=== PATIENT | male | born 1970 | race Caucasian/White ===

== ENCOUNTER → 2017-10-01 14:08 | Outpatient (REF) | payer OTHER, SELFPAY ==
[2017-10-01 18:14] LABS: Basophils # 0.1 K/mm3 (0-0.2); Basophils % 0.9 % (0.1-2.0); Eosinophils # 0.3 K/mm3 (0.0-0.4); Eosinophils % 4.3 % (0.1-12.0); Hematocrit 46.9 % (42.0-52.0); Hemoglobin 14.7 g/dL (14.1-18.0); Lymphocytes # 2.1 K/mm3 (0.7-4.5); Lymphocytes % 32.1 K/mm3 (10-50); Mean Corpuscular HGB Conc 31.4 g/dL (31.8-35.4); Mean Corpuscular Hemoglobin 28.8 pg (27.0-31.2); Mean Corpuscular Volume 91.7 fl (80-94); Mean Platelet Volume 8.6 fl (7.4-10.4); Monocytes # 0.7 K/mm3 (0.1-1.0); Monocytes % 10.3 % (1.7-9.3); Neutrophils # 3.3 K/mm3 (1.8-7.8); Neutrophils % 52.4 % (37.0-80.0); Platelet Count 379 K/mm3 (142-424); Red Blood Count 5.11 M/mm3 (4.60-6.20); Red Cell Distribution Width 12.4 % (11.5-17.5); White Blood Count 6.4 K/mm3 (4.8-10.8)
[2017-10-01 18:53] LABS: Hemoglobin A1C 5.5 % (0.0-7.0)
[2017-10-01 19:44] LABS: Alanine Aminotransferase 46 U/L (12-78); Albumin Level 3.9 gm/dL (3.4-5.0); Alkaline Phosphatase 81 U/L (46-116); Aspartate Amino Transferase 28 U/L (15-37); Bilirubin,Total 0.4 mg/dL (0.2-1.0); Blood Urea Nitrogen 7 mg/dL (7-18); Carbon Dioxide 30 mmol/L (21.0-32.0); Chloride 102 mmol/L (98-107); Cholesterol 208 mg/dL (140-200); Creatinine,Serum 0.85 mg/dL (0.70-1.30); Estimated Glomerular Filt Rate 97 ml/min (>60); GFR (African American) 117 ML/MIN (>60); Globulin 3.9 gm/dl (1.3-3.2); Glucose 84 mg/dL (74-106); HDL Cholesterol 69 mg/dL (27-67); LDL Cholesterol 123 mg/dL (0-130); Sodium 138 mmol/L (136-145); Thyroid Stimulating Hormone 0.73 uIU/ml (0.358-3.740); Total Protein,Serum 7.8 gm/dL (6.4-8.2); Triglycerides 81 mg/dL (30-200); VLDL Cholesterol 16 mg/dL (0-40)
== END ==
LOC: LAB 14:08
PROVIDERS: Visit Provider Emergency Medicine
DX: I10 Essential (primary) hypertension (principal); R53.83 Other fatigue; Z79.899 Other long term (current) drug therapy
CPT/HCPCS: 80053; 80061; 83036; 84439; 84443; 85025

== ENCOUNTER → 2018-09-18 07:37 | Outpatient (CLI) | payer OTHER, SELFPAY ==
[2018-09-19 08:16] LABS: Basophils % 0.4 % (0.1-2.0); Eosinophils # 0.1 K/mm3 (0.0-0.4); Eosinophils % 1.6 % (0.1-12.0); Hematocrit 35.3 % (42.0-52.0); Hemoglobin 10.4 g/dL (14.1-18.0); Lymphocytes # 1.7 K/mm3 (0.7-4.5); Lymphocytes % 44.5 % (10-50); Mean Corpuscular HGB Conc 29.6 g/dL (31.8-35.4); Mean Corpuscular Hemoglobin 24.9 pg (27.0-31.2); Mean Corpuscular Volume 84.3 fl (80-94); Mean Platelet Volume 8.3 fl (7.4-10.4); Monocytes # 0.4 K/mm3 (0.1-1.0); Monocytes % 11.2 % (1.7-9.3); Neutrophils # 1.6 K/mm3 (1.8-7.8); Neutrophils % 42.2 % (37.0-80.0); Platelet Count 387 K/mm3 (142-424); Red Blood Count 4.19 M/mm3 (4.60-6.20); Red Cell Distribution Width 17.6 % (11.5-17.5); White Blood Count 4.1 K/mm3 (4.8-10.8)
[2018-09-19 08:56] LABS: Alanine Aminotransferase 40 U/L (12-78); Albumin Level 3.8 gm/dL (3.4-5.0); Alkaline Phosphatase 88 U/L (46-116); Anion Gap 14.7 mEq/L (5-15); Aspartate Amino Transferase 43 U/L (15-37); Bilirubin,Total 0.4 mg/dL (0.2-1.0); Blood Urea Nitrogen 12 mg/dL (7-18); Calcium 8.6 mg/dL (8.5-10.1); Carbon Dioxide 25 mmol/L (21.0-32.0); Chloride 100 mmol/L (98-107); Chol/HDL Ratio 1.9 (1-3.5); Cholesterol 160 mg/dL (140-200); Creatinine,Serum 0.87 mg/dL (0.70-1.30); Estimated Glomerular Filt Rate 94 ml/min (>60); Free T4 (Free Thyroxine) 1.08 ng/dl (0.76-1.46); GFR (African American) 113 ML/MIN (>60); Globulin 3.8 gm/dl (1.3-3.2); Glucose 87 mg/dL (74-106); HDL Cholesterol 83 mg/dL (27-67); LDL Cholesterol 62 mg/dL (0-130); Potassium 4.7 mmoL/L (3.5-5.1); Sodium 135 mmol/L (136-145); Thyroid Stimulating Hormone 0.57 uIU/ml (0.358-3.740); Total Protein,Serum 7.6 gm/dL (6.4-8.2); Triglycerides 77 mg/dL (30-200); VLDL Cholesterol 15 mg/dL (0-40)
[2018-09-20 13:07] LABS: Vitamin D 25 Hydroxy 37.1 ng/mL (30.0-100.0)
== END ==
PROVIDERS: Visit Provider Emergency Medicine
DX: I10 Essential (primary) hypertension (principal); Z79.899 Other long term (current) drug therapy
CPT/HCPCS: 80053; 80061; 82652; 84439; 84443; 85025

== ENCOUNTER → 2018-09-25 14:03 | Outpatient (CLI) | payer OTHER, SELFPAY ==
[2018-09-25 15:24] VITALS: PULSE 94; PULSE 97
== END ==
PROVIDERS: PCP Emergency Medicine; Visit Provider Emergency Medicine
DX: J44.9 Chronic obstructive pulmonary disease, unspecified (principal)
CPT/HCPCS: 94060; 94640

== ENCOUNTER → 2018-10-01 07:20 | Outpatient (CLI) | payer OTHER, SELFPAY ==
--- NOTE | 2018-10-01 07:24 | CA_ITS ---
PROCEDURE: 2-D M-mode and color Doppler study INDICATIONS FOR THE TEST: Chest pain+ COPD+ Heart Murmur+ Tobacco Smoking+ Palpitations Fatigue Syncope Edema Hypertension+Diabetes Mellitus Rheumatic Fever SOB+BARRON Obesity+Hyperlipidemia Family History HD Additional History alcoholic PATIENT INFORMATION HEIGHT: 66 WEIGHT: 232 GENDER: Male B/P: 130/74 2-D/M-MODE INTERPRETATION: 2-D MEASUREMENTS OBSERVED VALUES IN CMS Right Ventricular Dimension (RVDd) 2.6 Interventricular Septum (Thickness)(IVsd) 1.0 Left Ventricular Internal Dimensions(LVIDd) 5.0 Left Ventricular Posterior Wall (Thickness)(LVPWd) 1.0 Aortic Root 3.6 Aortic Cusp Separation 2.2 Left Atrial Dimensions (LAD) 4.0 2D 1. Left atrium is mildly enlarged, left ventricle is normal size, mild concentric left ventricular hypertrophy, visually estimated ejection fraction 55% with no regional wall motion abnormality 2. The right atrium and right ventricle are normal size and contractility. 3. The aortic valve is minimally thickened and fibrosed. 4. The mitral and tricuspid valve are normal. 5. The pulmonic valve is poorly visualized. 6. No significant pericardial effusion noted. DOPPLER INTERROGATION: Doppler interrogation of the aortic, mitral and tricuspid valvular presence of mild mitral and tricuspid regurgitation, tricuspid regurgitation jet velocity is inadequate for calculation of the right ventricular systolic pressure, grade 1 diastolic dysfunction seen with tissue Doppler evidence of raised left atrial pressure. CONCLUSION: 1. Mildly enlarged left atrium, normal left ventricular size, mild concentric left ventricular hypertrophy, visually estimated ejection fraction 55% with no regional wall motion abnormality, grade 1 diastolic dysfunction seen with tissue Doppler evidence of raised left atrial pressure. 2. Mild mitral and tricuspid regurgitation 3. No significant pericardial effusion.
== END ==
PROVIDERS: PCP Emergency Medicine; Visit Provider Emergency Medicine
DX: R01.1 Cardiac murmur, unspecified (principal)
CPT/HCPCS: 93306

== ENCOUNTER → 2018-10-11 17:48 | Outpatient (CLI) | payer OTHER, SELFPAY ==
[2018-10-11 18:24] LABS: Basophils % 0.3 % (0.1-2.0); Eosinophils # 0.1 K/mm3 (0.0-0.4); Eosinophils % 2.1 % (0.1-12.0); Hemoglobin 11.1 g/dL (14.1-18.0); Lymphocytes # 1.7 K/mm3 (0.7-4.5); Lymphocytes % 36.2 % (10-50); Mean Corpuscular HGB Conc 30.7 g/dL (31.8-35.4); Mean Corpuscular Hemoglobin 24.8 pg (27.0-31.2); Mean Corpuscular Volume 80.6 fl (80-94); Mean Platelet Volume 7.9 fl (7.4-10.4); Monocytes # 0.4 K/mm3 (0.1-1.0); Monocytes % 9.4 % (1.7-9.3); Neutrophils # 2.5 K/mm3 (1.8-7.8); Platelet Count 338 K/mm3 (142-424); Red Blood Count 4.46 M/mm3 (4.60-6.20); White Blood Count 4.7 K/mm3 (4.8-10.8)
[2018-10-13 06:46] LABS: Iron 22 ug/dL (38-169); UIBC 415 ug/dL (111-343)
[2018-10-14 14:24] LABS: Iron Saturation 5 % (15-55)
== END ==
PROVIDERS: Visit Provider Emergency Medicine
DX: D64.9 Anemia, unspecified (principal)
CPT/HCPCS: 83540; 83550; 85025

== ENCOUNTER 2019-04-18 10:18 | Observation (INO) ==
[2019-04-18 10:51] LABS: Basophils % 0.2 % (0.1-2.0); Eosinophils % 0.2 % (0.1-12.0); Hematocrit 27.3 % (42.0-52.0); Lymphocytes # 1.3 K/mm3 (0.7-4.5); Lymphocytes % 12.7 % (10-50); Mean Corpuscular HGB Conc 28.8 g/dL (31.8-35.4); Mean Corpuscular Volume 79.2 fl (80-94); Monocytes # 0.7 K/mm3 (0.1-1.0); Monocytes % 6.4 % (1.7-9.3); Neutrophils # 8.3 K/mm3 (1.8-7.8); Neutrophils % 80.5 % (37.0-80.0); Platelet Count 441 K/mm3 (142-424); Red Blood Count 3.45 M/mm3 (4.60-6.20); Red Cell Distribution Width 16.8 % (11.5-17.5); White Blood Count 10.3 K/mm3 (4.8-10.8)
[2019-04-18 11:57] LABS: Hemoglobin 7.9 g/dL (14.1-18.0)
[2019-04-18 13:13] LABS: Alanine Aminotransferase 58 U/L (12-78); Albumin/Globulin Ratio 0.7 (1.1-1.8); Alkaline Phosphatase 107 U/L (46-116); Anion Gap 15.1 mEq/L (5-15); Aspartate Amino Transferase 90 U/L (15-37); Bilirubin,Total 0.4 mg/dL (0.2-1.0); Blood Urea Nitrogen 5 mg/dL (7-18); Calcium 8.5 mg/dL (8.5-10.1); Carbon Dioxide 26 mmol/L (21.0-32.0); Chloride 93 mmol/L (98-107); Chol/HDL Ratio 2.6 (1-3.5); Cholesterol 113 mg/dL (140-200); Free Thyroxine Index 1.4 ug/dL (5.93-13.13); Globulin 4.2 gm/dl (1.3-3.2); Glucose 102 mg/dL (74-106); HDL Cholesterol 44 mg/dL (27-67); LDL Cholesterol 58 mg/dL (0-130); Sodium 130 mmol/L (136-145); Thyroid Stimulating Hormone 0.32 uIU/ml (0.358-3.740); Total Protein,Serum 7.2 gm/dL (6.4-8.2); Triglycerides 57 mg/dL (30-200); Triiodothryronine (T3) Uptake 31 % (31-39); VLDL Cholesterol 11 mg/dL (0-40)
[2019-04-18 17:16] LABS: Eosinophils % 0.1 % (0.1-12.0); Lymphocytes # 2.2 K/mm3 (0.7-4.5); Lymphocytes % 21.5 % (10-50); Mean Corpuscular HGB Conc 30.2 g/dL (31.8-35.4); Mean Platelet Volume 7.1 fl (7.4-10.4); Monocytes # 0.8 K/mm3 (0.1-1.0); Monocytes % 7.9 % (1.7-9.3); Neutrophils # 7.1 K/mm3 (1.8-7.8); Neutrophils % 70.4 % (37.0-80.0); Platelet Count 417 K/mm3 (142-424); Red Blood Count 3.25 M/mm3 (4.60-6.20); Red Cell Distribution Width 17.1 % (11.5-17.5); White Blood Count 10.1 K/mm3 (4.8-10.8)
[2019-04-18 17:27] LABS: Albumin Level 2.8 gm/dL (3.4-5.0); Albumin/Globulin Ratio 0.6 (1.1-1.8); Anion Gap 15.5 mEq/L (5-15); Bilirubin,Total 0.4 mg/dL (0.2-1.0); Globulin 4.5 gm/dl (1.3-3.2); Total Protein,Serum 7.3 gm/dL (6.4-8.2)
[2019-04-18 17:27] LABS: Hemoglobin 7.6 g/dL (14.1-18.0)
--- NOTE | 2019-04-18 20:19 | History & Physical Report ---
*Admission Date: 04/18/19 *Chief complaint: sob-anemia *History of present illness: this wm with known etoh misuse had swollen lower ext and dec h/h with symptomatic sob - pt was admitted for eval and transfusion [facility] History I have reviewed the patient's past medical history: Yes Medical History: Reports:: Anxiety, Chronic Obstructive Pulmonary Disease (COPD), Hypertension Denies:: Diabetes Mellitus Type 1, Diabetes Mellitus Type 2 *Have you ever received a pneumonia vaccine?: No *Have you received a flu vaccine this season?: No Other Medical History: Reports: Anemia, Arthritis Other Surgeries: Yes: No Previous Surgery Amputation: No Fractures: Yes - *Social History Smoking Status: Current every day smoker Tobacco Type: cigarettes # Packs/Day (cigarettes): 1 #Yrs smoked (if former smoker): 30 Alcohol Intake: current Alcohol Intake Frequency:: 3 or more drinks per day Substance Use Type: marijuana, crack/cocaine, opiates, painkillers Last Used Substance: just [employer] *Occupational Status:: unemployed Housing: house Household Members: family *Travel in the last 8 weeks: None - Psychiatric History Pschychiatric History:: Reports:: Anxiety Family Hx:: Heart Attack, Cancer, Coronary Artery Disease Review of Systems - Review of Systems Review of systems:: pertinent systems reviewed and negative unless documented below - Constitutional Denies fever(s) - Eyes Denies change in vision - ENT Denies sore throat - *Cardiovascular Reports shortness of breath, Denies chest pain at rest - *Respiratory Denies cough - *Gastrointestinal Reports nausea, Denies abdominal pain - *Genitourinary Denies blood in urine - *Musculoskeletal Denies joint pain - Integumentary/Breasts Denies rash - *Neurologic Denies seizure-like activity - Psychiatric Reports anxiety Meds Home Medications Medication Instructions Recorded Confirmed Type albuterol sulfate HFA 90 2 puff INHALATION Q4-6H PRN #18 g 03/10/19 04/18/19 Rx mcg/actuation aerosol inhaler Fluticasone/Vilanterol [Breo 1 inh INHALATION DAILY 04/18/19 04/18/19 History Ellipta] Omeprazole [Omeprazole 40mg 40 mg PO DAILY 04/18/19 04/18/19 History Capsule] buPROPion HCl [Wellbutrin 75mg 75 mg PO BID 04/18/19 04/18/19 History Tablet] Bisoprolol Fumarate [Bisoprolol 5 mg PO DAILY 04/19/19 04/19/19 History 5mg Tablet] Losartan/Hydrochlorothiazide 1 each PO DAILY 04/19/19 04/19/19 History [Losartan-Hctz 50-12.5 mg Tab] Allergies Allergy/AdvReac Type Severity Reaction Status Date / Time PCN (penicillin) Allergy Intermediate I-HIVES Uncoded 04/18/19 09:38 Penicillin Allergy Unknown Uncoded 04/18/19 09:38 Penicillin V Allergy Unknown Uncoded 04/18/19 09:38 Exam Vital signs and Labs for Last 24 Hours: Temp Pulse Resp BP Pulse Ox 98.7 F 95 H 18 135/82 99 04/18/19 20:04 04/18/19 20:04 04/18/19 20:04 04/18/19 20:04 04/18/19 20:04 Laboratory Results - last 24 hr 04/18/19 10:31: WBC 10.3, RBC 3.45 L, Hgb 7.9 L*, Hct 27.3 L, MCV 79.2 L, MCH 22.8 L, MCHC 28.8 L, RDW 16.8, Plt Count 441 H, MPV 9.0, Neut % (Auto) 80.5 H, Lymph % (Auto) 12.7, [place] % (Auto) 6.4, Eos % (Auto) 0.2, Baso % (Auto) 0.2, Neut # (Auto) 8.3 H, Lymph # (Auto) 1.3, [place] # (Auto) 0.7, Eos # (Auto) 0.0, Baso # (Auto) 0.0 04/18/19 10:31: Sodium 130 L, Potassium 4.1, Chloride 93 L, Carbon Dioxide 26, Anion Gap 15.1 H, BUN 5 L, Creatinine 0.81, Estimated GFR 102, Est GFR ( Amer) 123, Glucose 102, Calcium 8.5, Total Bilirubin 0.4, AST 90 H, ALT 58, Alkaline Phosphatase 107, Total Protein 7.2, Albumin 3.0 L, Globulin 4.2 H, Albumin/Globulin Ratio 0.7 L, Triglycerides 57, Cholesterol 113 L, LDL Cholesterol 58, VLDL Cholesterol 11, HDL Cholesterol 44, Cholesterol/HDL Ratio 2.6, TSH 0.32 L D, Free T4 Index 1.4 L, Thyroxine (T4) 4.4 L, T3 Uptake 31 04/18/19 10:31: B-Natriuretic Peptide 91 04/18/19 16:55: Blood Type O Positive, Antibody Screen Negative, Crossmatch (AHG) See Detail 04/18/19 16:55: WBC 10.1, RBC 3.25 L, Hgb 7.6 L*, Hct 25.0 L, MCV 77.0 L, MCH 23.3 L, MCHC 30.2 L, RDW 17.1, Plt Count 417, MPV 7.1 L, Neut % (Auto) 70.4, Lymph % (Auto) 21.5, [place] % (Auto) 7.9, Eos % (Auto) 0.1, Baso % (Auto) 0.0 L, Neut # (Auto) 7.1, Lymph # (Auto) 2.2, [place] # (Auto) 0.8, Eos # (Auto) 0.0, Baso # (Auto) 0.0 04/18/19 17:00: APTT 20.4 L 04/18/19 17:00: Sodium 127 L, Potassium 3.5, Chloride 92 L, Carbon Dioxide 23, Anion Gap 15.5 H, BUN 6 L, Creatinine 0.81, Estimated Creat Clear 167, Estimated GFR 102, Est GFR ( Amer) 123, Glucose 112 H, Calcium 8.0 L, Phosphorus 3.0, Magnesium 1.6, Total Bilirubin 0.4, AST 87 H, ALT 56, Alkaline Phosphatase 99, Total Protein 7.3, Albumin 2.8 L, Globulin 4.5 H, Albumin/Globulin Ratio 0.6 L 04/18/19 17:00: Blood Type Confirm O Positive 04/18/19 17:56: Stool Occult Blood Negative I & O for Last 24 hours: Intake & Output 04/16/19 04/17/19 04/18/19 04/19/19 11:59 11:59 11:59 11:59 Intake Total 240 / 240 Balance 240 / 240 Weight 234 lb - Constitutional no acute distress, obese - *Routine HEENT Exam Head: Present: normocephalic Eye: Present: EOMI, PERRL ENT: Absent: mucous membranes dry - *Routine Neck Exam Present: supple - *Routine Respiratory Exam Present: CTA bilaterally - *Routine Cardiovascular Exam Present: RRR, murmur - *Routine Abdominal Exam Present: soft - *Routine Extremities Exam Present: edema, pulses intact - *Routine Skin Exam Present: intact - *Routine Neurological Exam Present: alert, CN II-XII intact - Routine Psychiatric Exam Present: normal affect Assessment and Plan (1) Anemia Current visit: Yes Status: Acute Qualifiers: Anemia type: unspecified type Qualified Code(s): D64.9 - Anemia, unspecified Category: Medical Code(s): D64.9 - Anemia, unspecified (2) Anemia Current visit: Yes Status: Acute Category: Medical Code(s): D64.9 - Anemia, unspecified (3) Alcoholism Current visit: No Status: Acute Category: Medical Code(s): F10.20 - Alcohol dependence, uncomplicated (4) Hyponatremia Current visit: Yes Status: Acute Category: Medical Code(s): E87.1 - Hypo- osmolality and hyponatremia
[2019-04-19 03:57] LABS: Hematocrit 28.3 % (42.0-52.0); Hemoglobin 8.9 g/dL (14.1-18.0)
--- NOTE | 2019-04-19 09:07 | Pharmacy Consult Notes ---
[facility] Pharmacy VTE Monitoring - Patient Demographics Admission date: 04/18/19 Report Date: 04/19/19 Time: 09:07 Allergies/Adverse Reactions: Patient Allergies PCN (penicillin) Allergy (Intermediate, Uncoded 04/18/19 09:38) I-HIVES Penicillin Allergy (Unknown, Uncoded 04/18/19 09:38) Penicillin V Allergy (Unknown, Uncoded 04/18/19 09:38) Height: 1.65 m Weight: 107.133 kg - VTE Risk Labs: VTE Related Lab Results Hgb 8.9 g/dL (14.1-18.0) L D 04/19/19 03:45 Hct 28.3 % (42.0-52.0) L 04/19/19 03:45 Plt Count 417 K/mm3 (142-424) 04/18/19 16:55 APTT 20.4 seconds (23.6-34.0) L 04/18/19 17:00 BUN 6 mg/dL (7-18) L 04/18/19 17:00 Creatinine 0.81 mg/dL (0.70-1.30) 04/18/19 17:00 Estimated Creat Clear 167 mL/min (50-200) 04/18/19 17:00 - Prophylaxis VTE Prophylaxis Ordered?: Yes Types of VTE Prophylaxis: TEDS Knee High Location of Applied Device: Bilateral Lower Extremeties
--- NOTE | 2019-04-19 09:35 | Progress Note ---
Internal Medicine - PN: Subj *Date: 04/19/19 *Time: 09:33 Interval history: Today patient states he still weak. Exam Vital signs and Labs for Last 24 Hours: Temp Pulse Resp BP Pulse Ox 98.7 F 96 H 18 108/54 L 98 04/19/19 08:00 04/19/19 08:00 04/19/19 08:00 04/19/19 08:00 04/19/19 08:00 Laboratory Results - last 24 hr 04/18/19 10:31: WBC 10.3, RBC 3.45 L, Hgb 7.9 L*, Hct 27.3 L, MCV 79.2 L, MCH 22.8 L, MCHC 28.8 L, RDW 16.8, Plt Count 441 H, MPV 9.0, Neut % (Auto) 80.5 H, Lymph % (Auto) 12.7, [place] % (Auto) 6.4, Eos % (Auto) 0.2, Baso % (Auto) 0.2, Neut # (Auto) 8.3 H, Lymph # (Auto) 1.3, [place] # (Auto) 0.7, Eos # (Auto) 0.0, Baso # (Auto) 0.0 04/18/19 10:31: Sodium 130 L, Potassium 4.1, Chloride 93 L, Carbon Dioxide 26, Anion Gap 15.1 H, BUN 5 L, Creatinine 0.81, Estimated GFR 102, Est GFR ( Amer) 123, Glucose 102, Calcium 8.5, Total Bilirubin 0.4, AST 90 H, ALT 58, Alkaline Phosphatase 107, Total Protein 7.2, Albumin 3.0 L, Globulin 4.2 H, Albumin/Globulin Ratio 0.7 L, Triglycerides 57, Cholesterol 113 L, LDL Cholesterol 58, VLDL Cholesterol 11, HDL Cholesterol 44, Cholesterol/HDL Ratio 2.6, TSH 0.32 L D, Free T4 Index 1.4 L, Thyroxine (T4) 4.4 L, T3 Uptake 31 04/18/19 10:31: B-Natriuretic Peptide 91 04/18/19 16:55: Blood Type O Positive, Antibody Screen Negative, Crossmatch (AHG) See Detail 04/18/19 16:55: WBC 10.1, RBC 3.25 L, Hgb 7.6 L*, Hct 25.0 L, MCV 77.0 L, MCH 23.3 L, MCHC 30.2 L, RDW 17.1, Plt Count 417, MPV 7.1 L, Neut % (Auto) 70.4, Lymph % (Auto) 21.5, [place] % (Auto) 7.9, Eos % (Auto) 0.1, Baso % (Auto) 0.0 L, Neut # (Auto) 7.1, Lymph # (Auto) 2.2, [place] # (Auto) 0.8, Eos # (Auto) 0.0, Baso # (Auto) 0.0 04/18/19 17:00: APTT 20.4 L 04/18/19 17:00: Sodium 127 L, Potassium 3.5, Chloride 92 L, Carbon Dioxide 23, Anion Gap 15.5 H, BUN 6 L, Creatinine 0.81, Estimated Creat Clear 167, Estimated GFR 102, Est GFR ( Amer) 123, Glucose 112 H, Calcium 8.0 L, Phosphorus 3.0, Magnesium 1.6, Total Bilirubin 0.4, AST 87 H, ALT 56, Alkaline Phosphatase 99, Total Protein 7.3, Albumin 2.8 L, Globulin 4.5 H, Albumin/Globulin Ratio 0.6 L 04/18/19 17:00: Blood Type Confirm O Positive 04/18/19 17:56: Stool Occult Blood Negative 04/18/19 23:16: Stool Occult Blood Negative 04/19/19 03:45: Hgb 8.9 L D, Hct 28.3 L I & O for Last 24 hours: Intake & Output 04/16/19 04/17/19 04/18/19 04/19/19 11:59 11:59 11:59 11:59 Intake Total 1983 Balance 1983 Weight 236 lb 3 oz - Constitutional no acute distress - *Routine HEENT Exam Head: Present: normocephalic Eye: Present: PERRL ENT: Present: mucous membranes moist - *Routine Neck Exam Present: full ROM - *Routine Respiratory Exam Present: crackles - *Routine Cardiovascular Exam Present: RRR - *Routine Abdominal Exam Present: soft, normoactive bowel sounds. Absent: tenderness - *Routine Extremities Exam Present: full ROM. Absent: cyanosis, clubbing, edema - *Routine Skin Exam Present: warm. Absent: rash - *Routine Neurological Exam Present: alert, oriented X3 - Routine Psychiatric Exam Present: normal affect Assessment and Plan - Assessment and plan all Dx Assessment and Plan for all problems:: Rounded with Dr. Landeros all orders per Leti After 2 units of packed red cells hemoglobin only 9 will recheck CBC at 4:00 to ensure it is maintaining. We will give one-time dose of Lasix 20 mg for crackles.
[2019-04-19 17:01] LABS: Basophils % 0.1 % (0.1-2.0); Eosinophils % 0.2 % (0.1-12.0); Hematocrit 31.2 % (42.0-52.0); Hemoglobin 9.7 g/dL (14.1-18.0); Lymphocytes # 1.6 K/mm3 (0.7-4.5); Lymphocytes % 16.5 % (10-50); Mean Corpuscular HGB Conc 31.1 g/dL (31.8-35.4); Mean Corpuscular Volume 78.7 fl (80-94); Mean Platelet Volume 6.5 fl (7.4-10.4); Monocytes # 0.8 K/mm3 (0.1-1.0); Monocytes % 7.9 % (1.7-9.3); Neutrophils # 7.2 K/mm3 (1.8-7.8); Neutrophils % 75.3 % (37.0-80.0); Platelet Count 429 K/mm3 (142-424); Red Blood Count 3.96 M/mm3 (4.60-6.20); Red Cell Distribution Width 17.3 % (11.5-17.5); White Blood Count 9.6 K/mm3 (4.8-10.8)
[2019-04-20 08:28] VITALS: BP 140/88
--- NOTE | 2019-04-20 09:44 | Progress Note ---
Internal Medicine - PN: Subj *Date: 04/20/19 *Time: 09:42 Interval history: Today patient doing well. Patient still states that if he goes home he will go back to drinking he would like to be placed in a rehab. Exam Vital signs and Labs for Last 24 Hours: Temp Pulse Resp BP Pulse Ox 99.3 F 80 18 140/88 98 04/20/19 08:00 04/20/19 08:00 04/20/19 08:00 04/20/19 08:00 04/20/19 08:00 Laboratory Results - last 24 hr 04/19/19 13:40: Plasma/Serum Alcohol 0 04/19/19 16:18: WBC 9.6, RBC 3.96 L, Hgb 9.7 L, Hct 31.2 L, MCV 78.7 L, MCH 24.5 L, MCHC 31.1 L, RDW 17.3, Plt Count 429 H, MPV 6.5 L, Neut % (Auto) 75.3, Lymph % (Auto) 16.5, [place] % (Auto) 7.9, Eos % (Auto) 0.2, Baso % (Auto) 0.1, Neut # (Auto) 7.2, Lymph # (Auto) 1.6, [place] # (Auto) 0.8, Eos # (Auto) 0.0, Baso # (Auto) 0.0 I & O for Last 24 hours: Intake & Output 04/17/19 04/18/19 04/19/19 04/20/19 11:59 11:59 11:59 11:59 Intake Total 1983 1490 / 1490 Output Total 150 / 150 Balance 1983 1340 / 1340 Weight 236 lb 3 oz 236 lb 5 oz - Constitutional no acute distress - *Routine HEENT Exam Head: Present: normocephalic Eye: Present: EOMI, PERRL ENT: Present: mucous membranes moist - *Routine Neck Exam Present: supple. Absent: lymphadenopathy - *Routine Respiratory Exam Present: CTA bilaterally - *Routine Cardiovascular Exam Present: RRR - *Routine Abdominal Exam Present: soft, normoactive bowel sounds. Absent: tenderness - *Routine Extremities Exam Present: full ROM. Absent: cyanosis, clubbing, edema - *Routine Skin Exam Present: warm. Absent: rash - *Routine Neurological Exam Present: alert, oriented X3 - Routine Psychiatric Exam Present: normal affect Assessment and Plan (1) Anemia Current visit: Yes Status: Acute Qualifiers: Anemia type: unspecified type Qualified Code(s): D64.9 - Anemia, unspecified Category: Medical Code(s): D64.9 - Anemia, unspecified (2) Anemia Current visit: Yes Status: Acute Category: Medical Code(s): D64.9 - Anemia, unspecified (3) Alcoholism Current visit: No Status: Acute Category: Medical Code(s): F10.20 - Alcohol dependence, uncomplicated (4) Hyponatremia Current visit: Yes Status: Acute Category: Medical Code(s): E87.1 - Hypo- osmolality and hyponatremia - Assessment and plan all Dx Assessment and Plan for all problems:: Dr. Landeros to round later today all orders per Dr. Landeros Will refer to Kam Coyne waiting on discharge to see if he gets admitted.
--- NOTE | 2019-04-20 11:41 | Discharge Summary ---
General - General Admission date:: 04/18/19 Discharge date: 04/20/19 HPI HPI: this wm with known etoh misuse had swollen lower ext and dec h/h with symptomatic sob - pt was admitted for eval and transfusion Hospital Course Hospital Course: Anemia-2 units of packed red cells. Hemoglobin started at 7.6 yesterday was 9.7. Stool for occult blood x2-both negative IV fluids for low sodium-chronic Alcohol withdrawal protocol-patient states is doing well but not drinking. Plan was for the patient to be discharged and then go to [facility] for rehab but patient has chose to go home with daughter and then go to rehab later. Will discharge home with daughter follow-up in the office on Sunday he will need more work-up on his anemia and referred to Dr. Shook. Patient states he snores he will also need a sleep study Long discussion with patient about drinking alcohol and the risk of taking medicine to help with anxiety. Discussed healthy diet and lifestyle with patient. Objective Vital signs: Temp Pulse Resp BP Pulse Ox 99.3 F 80 18 140/88 98 04/20/19 08:00 04/20/19 08:00 04/20/19 08:00 04/20/19 08:00 04/20/19 08:00 no acute distress - *Routine HEENT Exam Head: Present: normocephalic Eye: Present: PERRL ENT: Present: mucous membranes moist - *Routine Respiratory Exam Present: CTA bilaterally - *Routine Cardiovascular Exam Present: RRR - *Routine Abdominal Exam Present: soft, normoactive bowel sounds - *Routine Extremities Exam Present: full ROM - *Routine Skin Exam Present: intact - *Routine Neurological Exam Present: alert, oriented X3, CN II-XII intact - Routine Psychiatric Exam Present: normal affect Results Labs on day of discharge: Labs from last 24 hours 04/19/19 04/19/19 16:18 13:40 WBC 9.6 RBC 3.96 L Hgb 9.7 L Hct 31.2 L MCV 78.7 L MCH 24.5 L MCHC 31.1 L RDW 17.3 Plt Count 429 H MPV 6.5 L Neut % (Auto) 75.3 Lymph % (Auto) 16.5 [place] % (Auto) 7.9 Eos % (Auto) 0.2 Baso % (Auto) 0.1 Neut # (Auto) 7.2 Lymph # (Auto) 1.6 [place] # (Auto) 0.8 Eos # (Auto) 0.0 Baso # (Auto) 0.0 Plasma/Serum Alcohol 0 - Additional Comments Discussed patient with Dr. Landeros all orders per Leti. DS: Diagnosis - Discharge Diagnosis (1) Anemia Status: Acute (2) Anemia Status: Acute (3) Alcoholism Status: Acute (4) Hyponatremia Status: Acute Discharge Plan - Patient Discharge Instructions ACTIVITY: Continue current activity DIET: continue same diet Patient Instructions: Anemia, DI for Blood Transfusion - Follow up Plan Follow up with: Aquilino Bloom APRN [Nurse Practitioner] - 05/20/19 Disposition: Home, Self-Halfway Medications: Home Medications Medication Instructions Recorded Confirmed Type albuterol sulfate HFA 90 2 puff INHALATION Q4-6H PRN #18 g 03/10/19 04/18/19 Rx mcg/actuation aerosol inhaler Fluticasone/Vilanterol [Breo 1 inh INHALATION DAILY 04/18/19 04/18/19 History Ellipta] Omeprazole [Omeprazole 40mg 40 mg PO DAILY 04/18/19 04/18/19 History Capsule] buPROPion HCl [Wellbutrin 75mg 75 mg PO BID 04/18/19 04/18/19 History Tablet] Bisoprolol Fumarate [Bisoprolol 5 mg PO DAILY 04/19/19 04/19/19 History 5mg Tablet] Losartan/Hydrochlorothiazide 1 each PO DAILY 04/19/19 04/19/19 History [Losartan-Hctz 50-12.5 mg Tab] clonazePAM [Clonazepam] 0.5 mg PO QID 15 Days #32 tab 04/20/19 Rx Prescriptions/Medication Reconciliation: New clonazePAM [Clonazepam] 0.5 mg PO QID 15 Days #32 tab Continued albuterol sulfate HFA 90 mcg/actuation aerosol inhaler 2 puff INHALATION Q4- 6H PRN #18 g PRN Reason: shortness of breath or wheezing Omeprazole [Omeprazole 40mg Capsule] 40 mg PO DAILY Fluticasone/Vilanterol [Breo Ellipta] 1 inh INHALATION DAILY buPROPion HCl [Wellbutrin 75mg Tablet] 75 mg PO BID Bisoprolol Fumarate [Bisoprolol 5mg Tablet] 5 mg PO DAILY Losartan/Hydrochlorothiazide [Losartan-Hctz 50-12.5 mg Tab] 1 each PO DAILY - Problem Reconciliation Problems Reviewed?: Yes
== END 2019-04-20 12:27 | disposition home or self-care (01) ==
LOC: LAB 10:18 → 2ND 10:18 → INTOOBSV 16:29 → OBSVTOIN 16:29 → 2ND 17:06
PROVIDERS: ADMIT Emergency Medicine; ATTEND Emergency Medicine
DX: Z79.899 Other long term (current) drug therapy; Z88.0 Allergy status to penicillin; F10.20 Alcohol dependence, uncomplicated; E66.01 Morbid (severe) obesity due to excess calories; I10 Essential (primary) hypertension; Z79.51 Long term (current) use of inhaled steroids; D64.9 Anemia, unspecified; E87.1 Hypo-osmolality and hyponatremia; J44.9 Chronic obstructive pulmonary disease, unspecified
CPT/HCPCS: 36415; 80053; 80061; 80306; 82272; 83735; 83880; 84100; 84436; 84443; 84479; 85014; 85018; 85025; 85730; 86850; 93308; G0328; G0378; J2405; P9016

== ENCOUNTER → 2019-04-22 18:06 | Outpatient (CLI) | payer OTHER, SELFPAY ==
[2019-04-22 18:09] LABS: MANUAL DIFFERENTIAL MANUAL DIFFERENTIAL (MANUAL DIFF)
[2019-04-22 18:31] LABS: Basophils % 0.3 % (0.1-2.0); Eosinophils # 0.1 K/mm3 (0.0-0.4); Eosinophils % 0.7 % (0.1-12.0); Hematocrit 32.6 % (42.0-52.0); Hemoglobin 9.6 g/dL (14.1-18.0); Lymphocytes # 1.6 K/mm3 (0.7-4.5); Lymphocytes % 19.3 % (10-50); Mean Corpuscular HGB Conc 29.4 g/dL (31.8-35.4); Mean Corpuscular Hemoglobin 23.6 pg (27.0-31.2); Mean Corpuscular Volume 80.5 fl (80-94); Monocytes # 0.8 K/mm3 (0.1-1.0); Monocytes % 9.5 % (1.7-9.3); Neutrophils # 5.7 K/mm3 (1.8-7.8); Neutrophils % 70.2 % (37.0-80.0); Platelet Count 496 K/mm3 (142-424); Red Blood Count 4.05 M/mm3 (4.60-6.20); Red Cell Distribution Width 17.1 % (11.5-17.5); Reticulocyte % (Auto) 2.9 % (0.9-3.2); White Blood Count 8.1 K/mm3 (4.8-10.8)
[2019-04-22 19:24] LABS: Hypochromasia 1+; Lymphocytes % 14 % (10-50); Microcytosis 1+; Monocytes % 8 % (2-9); Neutrophils % 78 % (42-76); Platelet Estimate Normal; RBC Morphology Normal; Total Cells Counted 100
[2019-04-22 22:19] LABS: Ferritin 55 ng/mL (8-388)
[2019-04-24 08:13] LABS: Iron 20 ug/dL (38-169); UIBC 332 ug/dL (111-343)
[2019-04-24 18:07] LABS: Peripheral Smear Review Scanned Result
[2019-04-25 11:41] LABS: Vitamin B12 506 pg/mL (232-1245)
[2019-04-25 11:42] LABS: Iron Saturation 6 % (15-55)
== END ==
PROVIDERS: Visit Provider Nurse Practitioner Family
DX: D64.9 Anemia, unspecified (principal)
CPT/HCPCS: 82607; 82728; 82746; 83540; 83550; 85007; 85014; 85018; 85044; 85048; 85049

== ENCOUNTER → 2019-05-15 11:52 | Outpatient (CLI) | payer OTHER, SELFPAY ==
--- NOTE | 2019-05-15 | CA_ITS ---
APPROVED REPORT Exam: Pharmacologic Technologist: Marika Wheat, Ht: 5 ft 5 in Wt: 245 lbs BSA: 2.16 m2 HR: 77 bpm BP: 152/92 mmHg Rhythm: NSR,ICRBBB,NS T WAVE ABNORMALITIES Indications: CP,SOA,PALPITATIONS,SYNCOPE Medical History Medical History: HTN Medications: Omeprazole,,,,, Losartan,,,,, WELLBUTRIN,,,,, LoraTADINE,,,,, BisOPROLOL,,,,, ClonAZapam,,,,, Allergies: PCN Cardiac Risk Factors: FHX of CAD, HTN Stress Test Details Test: LEXISCAN HR Resting HR: 77 bpm Max Heart Rate (APMHR): 171 bpm Max HR Achieved: 90 bpm Target HR (85% APMHR): 145 bpm % of APMHR: 52 Recovery HR: 83 bpm BP Resting BP: 152.0/92.0 mmHg Max BP: 152.0/92.0 mmHg Recovery BP: 150.0/94.0 mmHg ECG Resting ECG: NSR,ICRBBB,NS T WAVE ABNORMALITIES Clinical Exercise duration: 04:24 min Highest Stage Achieved: Stress ECG Conclusion DURING INFUSION OF LEXISCAN PATIENT HAD SOA,MALAISE AND NAUSEA. NO CHEST PAIN. NO ARRHYTHMIAS/ECTOPY. NO SIGNIFICANT ST-T CHANGES. UNREMARKABLE LEXISCAN STRESS. MYOVIEW IMAGES REPORTED SEPARATELY. Electronically signed by : George Machuca, 05/15/2019 15:35:52
--- NOTE | 2019-05-15 13:50 | HMH.ITSHM ---
Current Home Medications as stated by this patient Shay Israel or development representative. [] loratadine clonazepam bisoprolol omprazole losartan wellbutrin
== END ==
PROVIDERS: PCP Emergency Medicine; Visit Provider Internal Medicine Cardiovascular Disease
DX: R06.09 Other forms of dyspnea (principal); I10 Essential (primary) hypertension; R60.9 Edema, unspecified; J44.9 Chronic obstructive pulmonary disease, unspecified; E66.01 Morbid (severe) obesity due to excess calories; F10.20 Alcohol dependence, uncomplicated; F17.200 Nicotine dependence, unspecified, uncomplicated; F19.11 Other psychoactive substance abuse, in remission; F41.9 Anxiety disorder, unspecified
CPT/HCPCS: 78452; 93017; A9502; J2785

== ENCOUNTER 2019-12-02 18:13 | Emergency (ER) | payer OTHER, SELFPAY ==
[2019-12-02 18:13] VITALS: BP 133/40; PULSE 88; RESP 20; TEMP 36.6; O2SAT 93; BMI 39.4
[2019-12-02 18:40] VITALS: BMI 39.4
--- NOTE | 2019-12-02 18:41 | XR_ITS ---
PROCEDURE: XR CHEST 2V CLINICAL HISTORY: SOA Shortness of breath COMPARISON: No exams were available for comparison FINDINGS: There is cardiomegaly. There is a large hiatal hernia situated to the right of midline. The lungs are clear without infiltrates, suspicious nodules, or pleural effusions. There are old right-sided rib fractures. IMPRESSION: Cardiomegaly with hiatal hernia Dictated by: Aashish Chino MD 12/03/2019 17:51 Electronically signed by Aashish Chino MD in [place] 12/03/2019 17:51
--- NOTE | 2019-12-02 18:55 | HMH.EDGENADL ---
ED Disposition Clinical Impression: Weakness, Atypical chest pain Disposition: Home, Self-Care Condition on Discharge: Good Additional Instructions: Follow-up with Dr. Landeros in the office. Follow-up with cardiology, Dr. Otero and Dr. Machuca in the office, call for appointment. Additional instructions for CHEST PAIN: See your physician as soon as possible for further evaluation. Return immediately if worsening chest pain, vomiting, shortness of breath, fever, coughing of blood. Referrals: Manolo Landeros MD [Primary Care Provider] - German Otero MD [Staff Physician] - - Critical Care Critical Care Time: No Attestation: On 12/02/19, the high probability of a clinically significant, sudden or life threatening deterioration of the following system(s) required my full and direct attention, intervention and personal management. The time I documented below is in addition to time spent performing reported procedures but includes the following listed in this critical care notation. Medical Decision Making - Herb Inquiry Pt receiving controlled substance: No Vital Signs: 12/02/19 18:13 Temperature 97.9 F Temperature Source Oral Pulse Rate [Right] 88 Respiratory Rate 20 Blood Pressure [Right Arm] 133/40 L Blood Pressure Mean [Right Arm] 71 02 Sat by Pulse Oximetry 93 L - Lab Data Lab Results 12/02/19 18:40: WBC 9.6, RBC 3.60 L, Hgb 9.4 L, Hct 30.7 L, MCV 85.1, MCH 26.2 L, MCHC 30.8 L, RDW 14.4, Plt Count 385, MPV 7.9, Neut % (Auto) 71.2, Lymph % (Auto) 20.9, [place] % (Auto) 4.8, Eos % (Auto) 2.7, Baso % (Auto) 0.3, Neut # (Auto) 6.8, Lymph # (Auto) 2.0, [place] # (Auto) 0.5, Eos # (Auto) 0.3, Baso # (Auto) 0.0 12/02/19 18:40: Sodium 134 L, Potassium 4.4, Chloride 98, Carbon Dioxide 27, Anion Gap 13.4, BUN 13, Creatinine 1.00, Estimated Creat Clear 132, Estimated GFR 79, Est GFR ( Amer) 96, Glucose 103 H, Calcium 8.6, Total Bilirubin 0.3, AST 34, ALT 19, Alkaline Phosphatase 78, Total Protein 7.5, Albumin 4.0, Globulin 3.5 H, Albumin/Globulin Ratio 1.1 12/02/19 18:40: Influenza Type A Ag Negative, Influenza Type B Ag Negative 12/02/19 18:40: Group A Strep Rapid Negative 12/02/19 18:40: Troponin I 0.03 Result diagrams: 12/02/19 18:40 12/02/19 18:40 Orders (Tests/Meds): ORDERS Category Date Time Status XR chest 2V Stat Exams 12/02/19 18:41 Taken Troponin I Q3H Lab 12/02/19 22:15 Ordered Troponin I Q3H Lab 12/03/19 01:15 Ordered Strep Screen Confirmation Stat Micro 12/02/19 18:40 Received - Radiology Data #1 Image(s): Chest Image Reviewed: Yes I reviewed the patient's radiology image Large hiatal or diaphragmatic hernia. No old x-rays for comparison. No acute process. - ECG Data Tracing #1 EKG interpreted by Antonino Schneider MD: Rhythm: sinus Rate: 75 [place]: normal Ectopy: none Conduction: Incomplete right bundle branch block ST Segment Changes: none T Wave Changes: Inversion inferior and lateral Q Waves: none Prior electrocardiagrams reviewed. No change from prior tracings. - Physician Consults Physician Consulted: Leti (present, saw patient in ED) Time: 20:19 Reason -: Pt condition Comment/Response: Discharge home for outpatient follow-up, follow-up with cardiology also. Medical Decision Narrative: The patient had a stress Myoview 2019, the stress portion was negative, I cannot find a report for the Myoview. Patient states he did not have the Myoview portion, insurance would not pay for it. He has not followed up with cardiology since his stress test. 8:20 PM: The patient does not want to stay for second troponin. General Adult HPI - General Stated complaint: low on blood Time Seen by Provider: 12/02/19 18:55 - History of Present Illness HPI narrative: Patient states he has not felt well for about 4 to 5 days. The last time he felt like this he was low on blood so he thought he might be low on blood again. He says that h
[2019-12-02 19:08] LABS: Chloride 98 mmol/L (98-107); Strep Scrn Group A (Rapid) Negative (Negative)
[2019-12-02 19:09] LABS: Potassium 4.4 mmoL/L (3.5-5.1); Sodium 134 mmol/L (136-145)
[2019-12-02 19:10] LABS: Basophils % 0.3 % (0.1-2.0); Eosinophils # 0.3 K/mm3 (0.0-0.4); Eosinophils % 2.7 % (0.1-12.0); Hematocrit 30.7 % (42.0-52.0); Hemoglobin 9.4 g/dL (14.1-18.0); Lymphocytes % 20.9 % (10-50); Mean Corpuscular HGB Conc 30.8 g/dL (31.8-35.4); Mean Corpuscular Hemoglobin 26.2 pg (27.0-31.2); Mean Corpuscular Volume 85.1 fl (80-94); Mean Platelet Volume 7.9 fl (7.4-10.4); Monocytes # 0.5 K/mm3 (0.1-1.0); Monocytes % 4.8 % (1.7-9.3); Neutrophils # 6.8 K/mm3 (1.8-7.8); Neutrophils % 71.2 % (37.0-80.0); Platelet Count 385 K/mm3 (142-424); Red Cell Distribution Width 14.4 % (11.5-17.5); White Blood Count 9.6 K/mm3 (4.8-10.8)
[2019-12-02 19:11] LABS: Alanine Aminotransferase 19 U/L (12-78); Alkaline Phosphatase 78 U/L (38-126); Anion Gap 13.4 mEq/L (5-15); Aspartate Amino Transferase 34 U/L (17-59); Bilirubin,Total 0.3 mg/dl (0.2-1.3); Blood Urea Nitrogen 13 mg/dl (9-20); Carbon Dioxide 27 mmol/L (22.0-30.0); Creatinine Clearance Estimated 132 mL/min (50-200); Estimated Glomerular Filt Rate 79 ml/min (>60); GFR (African American) 96 ML/MIN (>60)
[2019-12-02 19:12] LABS: Albumin/Globulin Ratio 1.1 (1.1-1.8); Calcium 8.6 mg/dl (8.4-10.2); Globulin 3.5 g/dL (1.3-3.2); Glucose 103 mg/dl (74-100); Total Protein,Serum 7.5 g/dl (6.3-8.2)
--- NOTE | 2019-12-02 19:18 | ECG_ITS ---
APPROVED REPORT Exam: Resting ECG HR:75 bpm ECG Measurements Heart Rate 75 AXES HI 132 P 26 QRSd 102 QRS 30 QT 422 T -19 QTc 471 <Conclusion> Normal sinus rhythm Incomplete right bundle branch block T wave abnormality, consider inferior ischemia Prolonged QT Abnormal ECG Electronically signed by : Chandler Oconnell, 12/05/2019 08:07:58
[2019-12-02 19:54] LABS: Troponin I 0.03 ng/ml (0.00-0.034)
[2019-12-02 21:00] VITALS: BP 137/81; PULSE 78; RESP 19; TEMP 36.7; O2SAT 98
== END 2019-12-02 21:02 | disposition home or self-care (01) ==
PROVIDERS: Emergency Provider Emergency Medicine; PCP Emergency Medicine
DX: R07.89 Other chest pain (principal); R53.1 Weakness; J44.9 Chronic obstructive pulmonary disease, unspecified; I10 Essential (primary) hypertension; F41.9 Anxiety disorder, unspecified; F17.210 Nicotine dependence, cigarettes, uncomplicated; F11.11 Opioid abuse, in remission
CPT/HCPCS: 71046; 80053; 84484; 85025; 87275; 87276; 87430; 93005; 96365; 99283; 99284

== ENCOUNTER → 2020-03-15 17:06 | Outpatient (CLI) | payer OTHER, SELFPAY ==
[2020-03-15 18:18] LABS: Anion Gap 15.6 mEq/L (5-15); Blood Urea Nitrogen 5 mg/dl (9-20); Calcium 8.5 mg/dl (8.4-10.2); Carbon Dioxide 26 mmol/L (22.0-30.0); Chloride 98 mmol/L (98-107); Estimated Glomerular Filt Rate 103 ml/min (>60); GFR (African American) 124 ML/MIN (>60); Glucose 150 mg/dl (74-100); Potassium 3.6 mmoL/L (3.5-5.1); Sodium 136 mmol/L (136-145)
== END ==
PROVIDERS: Visit Provider Emergency Medicine
DX: R60.9 Edema, unspecified (principal)
CPT/HCPCS: 80048

== ENCOUNTER → 2020-03-18 17:05 | Outpatient (CLI) | payer OTHER, SELFPAY ==
[2020-03-18 19:34] LABS: Hemoglobin A1C 5.8 % (4.0-6.0)
== END ==
PROVIDERS: Visit Provider Emergency Medicine
DX: R73.09 Other abnormal glucose (principal)
CPT/HCPCS: 83036

== ENCOUNTER 2020-04-01 19:58 | Inpatient (IN) | payer OTHER, SELFPAY ==
[2020-04-01] VITALS (8 sets, daily range): BP systolic 89–112; BP diastolic 47–68; PULSE 69–77; RESP 16–18; TEMP 36.7; O2SAT 96–100; BMI 44.2
--- NOTE | 2020-04-01 19:37 | ECG_ITS ---
APPROVED REPORT Exam: Resting ECG HR:87 bpm ECG Measurements Heart Rate 87 AXES [place] 136 P 32 QRSd 104 QRS 27 QT 394 T 12 QTc 474 <Conclusion> Normal sinus rhythm Nonspecific ST abnormality Abnormal ECG Electronically signed by : Chandler Oconnell, 04/02/2020 07:51:44
--- NOTE | 2020-04-01 20:10 | XR_ITS ---
PROCEDURE: XR CHEST 2V CLINICAL HISTORY: chest pain Smoker COMPARISON: CR XR CHEST 2V from 12/02/2019 FINDINGS: The cardiomediastinal silhouette and pulmonary vascularity are within normal limits. There is a moderate-sized hiatal hernia. No lobar consolidation. There is kyphoscoliosis of the thoracic and lumbar spine with wedging lower dorsal vertebral bodies similar to the previous exam. IMPRESSION: Kyphoscoliosis with hiatal Dictated b Aashish Chino MD 04/02/2020 05:42 Aashish Chino MD in [place] 04/02/2020 05:42
[2020-04-01 20:20] LABS: Basophils # 0.1 K/mm3 (0-0.2); Basophils % 0.6 % (0.1-2.0); Eosinophils # 0.1 K/mm3 (0.0-0.4); Eosinophils % 0.9 % (0.1-12.0); Hematocrit 24.2 % (42.0-52.0); Lymphocytes # 1.8 K/mm3 (0.7-4.5); Lymphocytes % 18.6 % (10-50); Mean Corpuscular HGB Conc 30.2 g/dL (31.8-35.4); Mean Corpuscular Hemoglobin 23.2 pg (27.0-31.2); Mean Corpuscular Volume 76.9 fl (80-94); Mean Platelet Volume 6.8 fl (7.4-10.4); Monocytes # 0.8 K/mm3 (0.1-1.0); Monocytes % 8.6 % (1.7-9.3); Neutrophils # 6.8 K/mm3 (1.8-7.8); Neutrophils % 71.5 % (37.0-80.0); Platelet Count 438 K/mm3 (142-424); Potassium 3.5 mmoL/L (3.5-5.1); Red Blood Count 3.15 M/mm3 (4.60-6.20); Red Cell Distribution Width 15.8 % (11.5-17.5); Sodium 121 mmol/L (136-145); White Blood Count 9.5 K/mm3 (4.8-10.8)
[2020-04-01 20:21] LABS: Hemoglobin 7.3 g/dL (14.1-18.0)
--- NOTE | 2020-04-01 20:21 | PC.NURSE ---
critical hgb reported to Dr. Landeros
[2020-04-01 20:23] LABS: Blood Urea Nitrogen 17 mg/dl (9-20); Creatinine Clearance Estimated 60 mL/min (50-200); Estimated Glomerular Filt Rate 64 ml/min (>60); Ethyl Alcohol 54 mg/dl (0-10); GFR (African American) 78 ML/MIN (>60)
[2020-04-01 20:24] LABS: Anion Gap 14.5 mEq/L (5-15); Calcium 8.7 mg/dl (8.4-10.2); Carbon Dioxide 30 mmol/L (22.0-30.0); Glucose 104 mg/dl (74-100)
[2020-04-01 20:26] LABS: Chloride 80 mmol/L (98-107)
[2020-04-01 20:53] LABS: Troponin I < 0.01 ng/ml (0.00-0.034)
--- NOTE | 2020-04-01 20:56 | HMH.EDCP ---
ED Disposition Clinical Impression: Thrombocytosis, Hyponatremia, Alcoholism, Bilateral lower extremity edema Chest pain Qualifiers: Chest pain type: precordial pain Qualified Code(s): R07.2 - Precordial pain COPD (chronic obstructive pulmonary disease) Qualifiers: COPD type: unspecified COPD Qualified Code(s): J44.9 - Chronic obstructive pulmonary disease, unspecified Obesity Qualifiers: Obesity type: due to excess calories Obesity classification: adult class 3 (BMI >= 40) Serious obesity comorbidity presence: with serious comorbidity Body mass index: BMI 40.0-44.9 Qualified Code(s): E66.01 - Morbid (severe) obesity due to excess calories; Z68.41 - Body mass index (BMI) 40.0-44.9, adult Hypertension Qualifiers: Hypertension type: essential hypertension Qualified Code(s): I10 - Essential (primary) hypertension Disposition: Admitted As Inpatient Condition on Discharge: Fair Referrals: Manolo Landeros MD [Primary Care Provider] - - Critical Care Critical Care Time: No Attestation: On 04/01/20, the high probability of a clinically significant, sudden or life threatening deterioration of the following system(s) required my full and direct attention, intervention and personal management. The time I documented below is in addition to time spent performing reported procedures but includes the following listed in this critical care notation. Medical Decision Making - Medical Records Medical records reviewed: Yes: I reviewed the patient's medical records. - Herb Inquiry Pt receiving controlled substance: No Vital Signs: 04/01/20 19:58 Temperature 98.1 F Temperature Source Oral Pulse Rate [Left Radial] 77 Respiratory Rate 16 Blood Pressure [Right Arm] 89/48 L Blood Pressure Mean [Right Arm] 61 Blood Pressure Source [Right Arm] Automatic Cuff Blood Pressure Position [Right Arm] Sitting 02 Sat by Pulse Oximetry 96 Oxygen Delivery Method Room Air - Lab Data Lab results reviewed: Yes: I reviewed the patient's lab results. Lab Results 04/01/20 20:00: WBC 9.5, RBC 3.15 L, Hgb 7.3 L*, Hct 24.2 L, MCV 76.9 L, MCH 23.2 L, MCHC 30.2 L, RDW 15.8, Plt Count 438 H, MPV 6.8 L, Neut % (Auto) 71.5, Lymph % (Auto) 18.6, [place] % (Auto) 8.6, Eos % (Auto) 0.9, Baso % (Auto) 0.6, Neut # (Auto) 6.8, Lymph # (Auto) 1.8, [place] # (Auto) 0.8, Eos # (Auto) 0.1, Baso # (Auto) 0.1 04/01/20 20:00: Sodium 121 L, Potassium 3.5, Chloride 80 L, Carbon Dioxide 30, Anion Gap 14.5, BUN 17, Creatinine 1.20, Estimated Creat Clear 60, Estimated GFR 64, Est GFR ( Amer) 78, Glucose 104 H, Calcium 8.7, Troponin I < 0.01 04/01/20 20:00: Plasma/Serum Alcohol 54 H Result diagrams: 04/01/20 20:00 04/01/20 20:00 Orders (Tests/Meds): ED MEDICATIONS Generic Name Dose Route Start Last Admin Trade Name Freq PRN Reason Stop Dose Admin Sodium Chloride 1,000 mls @ 999 mls/hr 04/01/20 20:15 04/01/20 20:19 Sod Chlor 0.9% 1000ml Bag IV 04/01/20 21:15 999 mls/hr .Q1H1M FELICITA Administration Discontinued Medications Generic Name Dose Route Start Last Admin Trade Name Freq PRN Reason Stop Dose Admin Aspirin 324 mg 04/01/20 20:12 04/01/20 20:18 Aspirin 81mg Chewable Tablet PO 04/01/20 20:13 324 mg ONCE ONE Administration ORDERS Category Date Time Status XR chest 2V Stat Exams 04/01/20 20:10 Taken Drug Screen,Urine Stat Lab 04/01/20 21:08 Received Troponin I Q3H Lab 04/01/20 23:15 Ordered Troponin I Q3H Lab 04/02/20 02:15 Ordered Urinalysis and Microscopic Stat Lab 04/01/20 21:08 Received - Radiology Data #1 Image(s): Chest Image Reviewed: Yes I reviewed the patient's radiology image Preliminary Findings: Abnormal (hiatal hernia ) - ECG Data Tracing #1 Normal Sinus Rhythm: Yes Ischemic changes: non-specific ST-T wave changes Chest Pain HPI - General Chief Complaint: Chest Pain Stated Complaint: chest pain Time Seen by Provider: 04/01/20 20:05 Mode of Arrival: Ambulatory So
[2020-04-01 21:15] LABS: Microscopic, Urine URINE MICROSCOPIC (MICROSCOPIC)
[2020-04-01 21:16] LABS: Appearance,Urine CLEAR (Clear); Blood, Urine Negative (Negative); Glucose,Urine (UA) Negative (Negative); Ketones,Urine 1+ (Negative); Leukocyte Esterase,Urine Negative (Negative); Nitrate,Urine Negative (Negative); Protein,Urine Negative (Negative); Specific Gravity, Urine 1.025 (1.005-1.030); Urobilinogen,Urine 0.2 EU/dl (0.2)
[2020-04-01 21:29] LABS: Barbiturates Screen,Urine Negative ng/ml (<200); Benzodiazepines Screen,Urine Positive ng/ml (<200)
[2020-04-01 21:30] LABS: Amphetamine/Metha Screen,Urine Negative ng/ml (<1000); Bilirubin,Urine Negative (Negative); Cannabinoid Screen,Urine Negative ng/ml (<50); Color,Urine Amber (Yellow)
[2020-04-01 21:31] LABS: Cocaine Screen,Urine Negative ng/ml (<300)
[2020-04-01 21:32] LABS: Methadone Screen,Urine Negative ng/ml (<300); Opiate Screen,Urine Negative ng/ml (<300)
[2020-04-01 21:33] LABS: Phencyclidine Screen,Urine Negative ng/ml (<25)
[2020-04-01 21:44] LABS: Bacteria,Urine Trace /lpf; Squamous Epithelial Cell,Urine Occasional #/hpf (0-5)
[2020-04-01 21:47] LABS: Adenovirus,PCR Not Detected (NotDetected); Bordetella Pertussis Not Detected (NotDetected); Chlamydophila Pneumoniae, PCR Not Detected (NotDetected); Coronavirus 19, PCR Not Detected (NotDetected); Coronavirus 229E Not Detected (NotDetected); Coronavirus NL63 Not Detected (NotDetected); Coronavirus OC43 Not Detected (NotDetected); Coronovirus HKU1,PCR Not Detected (NotDetected); Human Metapneumovirus Not Detected (NotDetected); Influenza A, PCR Not Detected (NotDetected); Influenza AH1, 2009 Not Detected (NotDetected); Influenza AH1, PCR Not Detected (NotDetected); Influenza AH3,PCR Not Detected (NotDetected); Influenza B, PCR Not Detected (NotDetected); Mycoplasma Pneumoniae, PCR Not Detected (NotDetected); Parainfluenza 1, PCR Not Detected (NotDetected); Parainfluenza 2, PCR Not Detected (NotDetected); Parainfluenza 3, PCR Not Detected (NotDetected); Parainfluenza 4, PCR Not Detected (NotDetected); Respiratory Syncytial Virus Not Detected (NotDetected); Rhinovirus/Enterovirus Not Detected (NotDetected)
[2020-04-01 21:54] LABS: Alanine Aminotransferase 61 U/L (12-78); Albumin Level 3.7 g/dl (3.5-5.0); Alkaline Phosphatase 91 U/L (38-126); Aspartate Amino Transferase 167 U/L (17-59); Bilirubin,Direct 0.3 mg/dl (0.0-0.4); Bilirubin,Indirect 0.3 mg/dL (0.0-0.9); Bilirubin,Total 0.6 mg/dl (0.2-1.3); Bilirubin,Unconjugated 0.3 mg/dL (0.0-1.1); Chol/HDL Ratio 2.3 (1-3.5); Cholesterol 118 mg/dl (140-200); HDL Cholesterol 52 mg/dl (40-60); Total Protein,Serum 6.9 g/dl (6.3-8.2); Triglycerides 86 mg/dl (30-150); VLDL Cholesterol 17 mg/dL (0-40)
[2020-04-01 21:56] LABS: INR 0.99 (0.9-1.1); Prothrombin Time 10.2 seconds (9.4-11.8)
[2020-04-01 22:05] LABS: Direct LDL Cholesterol 62.05 mg/dL (100-129); NT Pro Brain Natriuretic Pep. 1830 pg/mL (0-125)
[2020-04-01 22:13] LABS: T4 (Thyroxine) 5.4 ug/dl (5.53-11.0)
[2020-04-01 22:26] LABS: Thyroid Stimulating Hormone 1.35 uIU/mL (0.465-4.68)
--- NOTE | 2020-04-01 23:47 | PC.NURSE ---
LAB CALLED TO LET THIS NURSE KNOW THE PTS BLOOD IS READY FOR INFUSION. THIS NURSE CALLED SHERITA TO COME TRANSFUSE BLOOD. SHERITA STATED IT WAS OKAY TO WAIT TILL PT WAS ADMITTED TO THE FLOOR FOR THE BLOOD TO BE TRANSFUSED. SHERITA SPOKE WITH CEZAR IN LAB ABOUT CONFIRMING IT WAS OKAY TO WAIT TO TRANSFUSE.
[2020-04-02] VITALS (41 sets, daily range): BP systolic 93–136; BP diastolic 41–86; PULSE 68–82; RESP 16–20; TEMP 36.4–37.1; O2SAT 95–100; BMI 45.4; BMI 45.1
--- NOTE | 2020-04-02 | IR_ITS ---
APPROVED REPORT Patient Location: Inpatient [facility] Professor: MARISA Mosher RT (R) PROCEDURES Left heart catheterization Left ventriculogram Selective coronary angiogram INDICATION Unstable angina Informed consent was obtained prior to the procedure. COMPLICATIONS None Estimated Blood Loss: less than 10ml TECHNIQUE One percent lidocaine used to anesthetize the right anterior aspect of the wrist. The right radial artery was accessed via the Seldinger technique. A 6 Slovak sheath was placed in the right radial artery. 2.5 mg of verapamil, 800 mcg of nitroglycerin, 1mg Lidocaine and 5000 U Heparin were given through the arterial sheath. The trap catheter was also used to perform left heart catheterization, left ventriculogram and selective coronary angiogram. At the end of the procedure the sheath was removed good hemostasis was achieved using Traclet band, patient was transferred to the postop holding area in stable condition. ANGIOGRAPHIC RESULTS The left main artery Normal The left anterior descending artery Normal The circumflex artery Normal The right coronary artery Dominant normal The CROOKS ventriculogram reveals Normal 65% The left ventricular end-diastolic pressure 15 mmHg IMPRESSION Normal coronary arteries Normal ejection fraction Mildly elevated LVEDP PLAN 1. Evaluation of noncardiac chest pain Electronically signed by : German Otero, 04/02/2020 12:08:25
[2020-04-02 00:03] LABS: Troponin I < 0.01 ng/ml (0.00-0.034)
--- NOTE | 2020-04-02 00:53 | PC.NURSE ---
called lab to check on COVID test
--- NOTE | 2020-04-02 01:05 | PC.NURSE ---
report called to IBIS Ernst
--- NOTE | 2020-04-02 01:24 | PC.NURSE ---
patient up to floor via wheelchair,RN.
[2020-04-02 02:23] LABS: Troponin I < 0.01 ng/ml (0.00-0.034)
--- NOTE | 2020-04-02 04:07 | PC.NURSE ---
Late entry: @ 8179 Blood consent obtained from pt makayla jhaveri RN and Adriana Ruiz RN. Pt is A&Ox4, has received blood products in the past without reaction. Pt teaching given for s/s of reaction. Pt has chronic back pain, rates 8/10 on TIP PRINTER, and denies any SOA at this time.
--- NOTE | 2020-04-02 04:14 | PC.NURSE ---
No changes from previous assessment. Pt has continued to deny and SOA, lungs CTA, and room air sat >97%. Pt has ambulated in room a few times and tolerated well independently. Pt has refused ROCK hose. Pt has an echo and cardiac consult for the am and was educated, partial basin bath, and surgically clipped for the possibility of a cardiac cath. Pt on tele with NSR noted. Pt denies any chest pain. Pt has rested in short intervals d/t receiving PRBC.
--- NOTE | 2020-04-02 06:20 | PC.NURSE ---
All care and charting completed by Lavelle Valdes was completed under my direct supervision.
--- NOTE | 2020-04-02 08:00 | CA_ITS ---
APPROVED REPORT EXAM: Comprehensive 2D, Doppler, and color-flow Echocardiogram Invoice Clerk: Radha Ríos RVT Ht: 5 ft 3 in Wt: 250lbs BSA: 2.13 BP: 89/48 mmHg Indications: cp,smoker,copd,htn,edema,alcoholism,fatigue 2D Dimensions LVOT 2.80 cm (M/F) 1.5-2.5 M-Mode Dimensions RVDd 3.48 cm (0.9-2.6) LVDd 6.16 cm (3.5-5.7) LVDs 3.93 cm (3.5-5.7) IVSd 1.07 cm (0.6-1.1) PWd 1.16 cm (0.6-1.1) EF (Teich) 64.90% FS 36.20% EDV (Teich) 191.10 mL ESV (Teich) 67.10 mL LV Diastology E/A Ratio 1.29 Mitral Valve MV A Velocity 59.00 (40-130 cm/s) Left Ventricle Left atrium is mildly enlarged, left ventricle is normal size, mild concentric left ventricular hypertrophy, visually estimated ejection fraction 55% with no regional wall motion abnormality, grade 1 diastolic dysfunction seen without tissue Doppler evidence of raise left atrial pressure. Right Ventricle Right atrium and right ventricle are mildly enlarged with normal contractility. Aortic Valve Aortic valve is minimally thickened and fibrosed, there is no aortic stenosis or aortic insufficiency. Mitral Valve Mitral valve is grossly normal, there is mild mitral regurgitation. Tricuspid Valve Tricuspid valve is grossly normal, there is mild tricuspid regurgitation, tricuspid regurgitation jet velocity is inadequate for calculation of the right ventricular systolic pressure. Pulmonic Valve Pulmonic valve is poorly visualized. Great Vessels Aortic root is normal size. Pericardium No significant pericardial effusion noted. Conclusion 1. Mild biatrial enlargement, normal left ventricular size, mild concentric left ventricular hypertrophy, visually estimated ejection fraction 55% with no regional wall motion abnormality, grade 1 diastolic dysfunction seen without tissue Doppler evidence of raise left atrial pressure. 2. Mildly enlarged right ventricle with normal contractility. 3. Mild mitral and tricuspid regurgitation. 4. No significant pericardial effusion noted. Electronically signed by : George Machuca, 04/02/2020 13:19:47
--- NOTE | 2020-04-02 08:29 | HMH.PHAVTE ---
[facility] Pharmacy VTE Monitoring - Patient Demographics Admission date: 04/02/20 Report Date: 04/02/20 Time: 08:29 Allergies/Adverse Reactions: Patient Allergies Penicillins Allergy (Verified 04/01/20 15:55) Hives Height: 1.63 m Weight: 120.202 kg Patient Problems: Current Active Problems Hyponatremia (Acute) Thrombocytosis (Acute) Bilateral lower extremity edema (Acute) Alcoholism (Chronic) Chest pain (Acute) Obesity (Chronic) COPD (chronic obstructive pulmonary disease) (Chronic) Hypertension (Chronic) - VTE Risk Labs: VTE Related Lab Results Hgb 7.3 g/dL (14.1-18.0) L* 04/01/20 20:00 Hct 24.2 % (42.0-52.0) L 04/01/20 20:00 Plt Count 438 K/mm3 (142-424) H 04/01/20 20:00 PT 10.2 seconds (9.4-11.8) 04/01/20 20:00 INR 0.99 (0.9-1.1) 04/01/20 20:00 APTT 22.0 seconds (23.6-34.0) L 04/01/20 20:00 BUN 17 mg/dl (9-20) 04/01/20 20:00 Creatinine 1.20 mg/dl (0.66-1.25) 04/01/20 20:00 Estimated Creat Clear 60 mL/min (50-200) 04/01/20 20:00 Was VTE Risk Assessment Performed: Yes VTE Score: 6 VTE Risk Level: Moderate Risk Clinical Trial Participant: No - Prophylaxis VTE Prophylaxis Ordered?: Yes Types of VTE Prophylaxis: TEDS Knee High
[2020-04-02 09:02] LABS: Eosinophils # 0.1 K/mm3 (0.0-0.4); Mean Corpuscular Hemoglobin 24.9 pg (27.0-31.2); Red Blood Count 3.66 M/mm3 (4.60-6.20)
[2020-04-02 09:06] LABS: Basophils % 0.4 % (0.1-2.0); Eosinophils % 1.2 % (0.1-12.0); Hematocrit 29.2 % (42.0-52.0); Lymphocytes # 1.2 K/mm3 (0.7-4.5); Lymphocytes % 18.8 % (10-50); Mean Corpuscular HGB Conc 31.2 g/dL (31.8-35.4); Mean Corpuscular Volume 79.8 fl (80-94); Mean Platelet Volume 7.8 fl (7.4-10.4); Monocytes # 0.6 K/mm3 (0.1-1.0); Monocytes % 8.4 % (1.7-9.3); Neutrophils # 4.7 K/mm3 (1.8-7.8); Neutrophils % 71.2 % (37.0-80.0); Platelet Count 353 K/mm3 (142-424); Red Cell Distribution Width 15.9 % (11.5-17.5); White Blood Count 6.6 K/mm3 (4.8-10.8)
[2020-04-02 09:20] LABS: Chloride 87 mmol/L (98-107); Sodium 128 mmol/L (136-145)
[2020-04-02 09:21] LABS: Potassium 3.3 mmoL/L (3.5-5.1)
[2020-04-02 09:23] LABS: Anion Gap 10.3 mEq/L (5-15); Blood Urea Nitrogen 14 mg/dl (9-20); Carbon Dioxide 34 mmol/L (22.0-30.0); Creatinine Clearance Estimated 83 mL/min (50-200); Estimated Glomerular Filt Rate 90 ml/min (>60); GFR (African American) 109 ML/MIN (>60)
--- NOTE | 2020-04-02 09:23 | HMH.CNCARD ---
History of Present Illness Consult date: 04/02/20 ( ) Requesting physician: Manolo Landeros Consult reason: chest pain Chief complaint: chest pain Additional Medical History:: 1. HTN 2. Anxiety 3. COPD 4. Anemia 5. Arthritis 6. 1 pack/day smoker 7. Alcoholism Echo 09/2018 shows: 1. Mildly enlarged left atrium, normal left ventricular size, mild concentric left ventricular hypertrophy, visually estimated ejection fraction 55% with no regional wall motion abnormality, grade 1 diastolic dysfunction seen with tissue Doppler evidence of raised left atrial pressure. 2. Mild mitral and tricuspid regurgitation 3. No significant pericardial effusion. Echo 03/2019 shows: EF is 65 to 70%. No wall motion abnormalities noted. No valvular disease noted. Lexiscan Myoview stress test May 15, 2019 shows: No scintigraphic evidence of reversible ischemia. Computer derived ejection fraction is over 65% with no regional wall motion abnormalities. Right ventricle is normal size and contractility. Normal Lexiscan Myoview study. History of present illness: This is a 49-year-old gentleman who came into the emergency department with chest pain. His troponins have been negative x2. The patient states that he is having a burning, sharp and pressure sensation in the center of his chest. It radiates to his left arm and the left side of his neck. It is associated with nausea and bilateral lower extremity edema. He is also diaphoretic and significantly dizzy with the chest pain and pressure. He is also been having profound shortness of breath. He states that he is short of breath when he walks and when he lies flat. He states that he has to sit up or stop walking to get the shortness of breath to resolve. He states that his chest pain and burning wakes him up in the middle of the night and does occur with exertion as well. He states that it can last for up to 4 hours. It does improve with rest at times. This is been going on for approximately a month and worsening. He does smoke 1 pack/day and does drink more than 3 alcoholic beverages a day. He does have a family history of coronary disease with his dad having an [place] at the age of 59. His BNP is 1830. He denies any fever, chills, vomiting, diarrhea. [facility] History I have reviewed the patient's past medical history: Yes Medical History: Reports:: Anxiety, Chronic Obstructive Pulmonary Disease (COPD), Hypertension Denies:: Cancer, Diabetes Mellitus Type 1, Diabetes Mellitus Type 2, MRSA *Have you ever received a pneumonia vaccine?: No *Have you received a flu vaccine this season?: No Other Medical History: Reports: Anemia, Arthritis Other Surgeries: Yes: No Previous Surgery, Colonoscopy Amputation: No Fractures: Yes - *Social History Last grade of school completed: High school graduate Smoking Status: Current every day smoker Tobacco Type: cigarettes # Packs/Day (cigarettes): 1 #Yrs smoked (if former smoker): 30 Alcohol Intake: current Alcohol Intake Frequency:: 3 or more drinks per day Substance Use Type: marijuana, crack/cocaine, hallucinogens, painkillers, IV drugs, methamphetamine Last Used Substance: days (ago) *Occupational Status:: unemployed, previously employed Housing: house Household Members: family *Travel in the last 8 weeks: None - Psychiatric History Pschychiatric History:: Reports:: Anxiety Family Hx:: Coronary Artery Disease, Heart Attack Meds Home Medications Medication Instructions Recorded Confirmed Type fluticasone furoate 100 1 inh INHALATION DAILY #60 each 12/31/19 04/01/20 Rx mcg-vilanterol 25 mcg/dose inhalation powder omeprazole 40 mg capsule,delayed 40 mg PO DAILY #90 cap 12/31/19 04/02/20 Rx release albuterol sulfate 90 mcg/actuation 2 puff INHALATION Q4-6H PRN #18 g 03/10/20 04/01/20 Rx aerosol inhaler Furosemide [Furosemide 40MG tAB] 40 mg PO DAILY 04/01/20 04/02/20 History Potassium Chloride [K-Tab ER 10 10 meq PO DAILY 04/01/20
--- NOTE | 2020-04-02 09:23 | HMH.PHAINT ---
home medication reconciliation completed using list from [facility] and pt interview.
[2020-04-02 09:24] LABS: Calcium 8.3 mg/dl (8.4-10.2); Glucose 97 mg/dl (74-100); Magnesium 1.7 mg/dl (1.6-2.3)
[2020-04-02 11:05] LABS: Hematocrit 31.2 % (42.0-52.0); Hemoglobin 9.9 g/dL (14.1-18.0)
[2020-04-02 11:27] LABS: Hemoglobin 9.1 g/dL (14.1-18.0)
--- NOTE | 2020-04-02 16:26 | HMH.HPDC ---
General - General Admission date:: 04/02/20 Discharge date: 04/02/20 *Admission Date: 04/02/20 *Chief complaint: chest pain *History of present illness: 49-year-old male presented to the office with c/o sob, chest pain for over 1 month but last pm it lasted till 4 am. Pt was sent to ed for eval. His troponins have been negative x2. The patient describes he is having a burning, sharp and pressure sensation in the center of his chest. It radiates to his left arm and the left side of his neck. It is associated with nausea and bilateral lower extremity edema. Pt states he is also diaphoretic and significantly dizzy with the chest pain and pressure with shortness of breath. He states that he is short of breath when he walks and when he lies flat. He states that his chest pain and burning wakes him up in the middle of the night and does occur with exertion as well. He does smoke 1 pack/day and does drink more than 3 alcoholic beverages a day. He does have a family history of coronary disease with his dad having an MA at the age of 59. His BNP is 1830. He denies any fever, chills, vomiting, diarrhea. pt admitted for cardiology consult and transfusion of prbc. [facility] [place] History I have reviewed the patient's past medical history: Yes Medical History: Reports:: Anxiety, Chronic Obstructive Pulmonary Disease (COPD), Hypertension Denies:: Cancer, Diabetes Mellitus Type 1, Diabetes Mellitus Type 2, MRSA *Have you ever received a pneumonia vaccine?: No *Have you received a flu vaccine this season?: No Other Medical History: Reports: Anemia, Arthritis Other Surgeries: Yes: No Previous Surgery, Colonoscopy Amputation: No Fractures: Yes - *Social History Last grade of school completed: High school graduate Smoking Status: Current every day smoker Tobacco Type: cigarettes # Packs/Day (cigarettes): 1 #Yrs smoked (if former smoker): 30 Alcohol Intake: current Alcohol Intake Frequency:: 3 or more drinks per day Substance Use Type: marijuana, crack/cocaine, hallucinogens, painkillers, IV drugs, methamphetamine Last Used Substance: days (ago) *Occupational Status:: unemployed, previously employed Housing: house Household Members: family *Travel in the last 8 weeks: None - Psychiatric History Pschychiatric History:: Reports:: Anxiety Family Hx:: Coronary Artery Disease, Heart Attack Review of Systems - Review of Systems Review of systems:: pertinent systems reviewed and negative unless documented below - Constitutional Reports fatigue, Reports lack of energy, Denies body ache(s) - Eyes Denies change in vision - ENT Denies bleeding gums, Denies nose pain, Denies sore throat - *Cardiovascular Reports chest pain, Reports chest pain at rest, Reports chest pain with activity, Reports shortness of breath, Reports shortness of breath with activity - *Respiratory Reports shortness of breath, Reports shortness of breath with activity - *Gastrointestinal Denies nausea, Denies vomiting - *Genitourinary Denies urinary incontinence - *Musculoskeletal Denies decreased muscle mass - Integumentary/Breasts Denies change in hair, Denies rash - *Neurologic Denies confusion, Denies headache(s), Denies seizure-like activity - Psychiatric Denies lack of enjoyment - Endocrine Denies flushing - Hematologic/Lymphatic Denies enlarged lymph nodes - Allergic/Immunologic Denies itchy eyes Exam Vital signs and Labs for Last 24 Hours: Temp Pulse Resp BP Pulse Ox 98.5 F 75 19 118/67 100 04/02/20 09:49 04/02/20 12:35 04/02/20 12:35 04/02/20 12:35 04/02/20 12:35 Laboratory Results - last 24 hr 04/01/20 20:00: WBC 9.5, RBC 3.15 L, Hgb 7.3 L*, Hct 24.2 L, MCV 76.9 L, MCH 23.2 L, MCHC 30.2 L, RDW 15.8, Plt Count 438 H, MPV 6.8 L, Neut % (Auto) 71.5, Lymph % (Auto) 18.6, [place] % (Auto) 8.6, Eos % (Auto) 0.9, Baso % (Auto) 0.6, Neut # (Auto) 6.8, Lymph # (Auto) 1.8, Grand # (Auto) 0.8, Eos # (Auto) 0.1, Baso # (Auto) 0.1 08
--- NOTE | 2020-04-02 18:06 | PC.NURSE ---
pt has done well since heart cath. no concerns voiced. pt family did voice concern over having bloody appearing stools at home, off and on. notified md patton about it and he stated it would be addressed at his follow up katy. no bloody stools noted here. vss. dressing to radial post cath site is cdi.
== END 2020-04-02 19:00 | disposition home or self-care (01) | DRG 287 ==
LOC: ER 21:38 → 2ND 04-02 01:24
PROVIDERS: Internal Medicine; Admitting Provider Emergency Medicine; Emergency Provider Emergency Medicine; PCP Emergency Medicine; Visit Provider Emergency Medicine
PROC: 4A023N7 Measurement of Cardiac Sampling and Pressure, Left Heart, Percutaneous Approach (ICD-10-PCS; principal; 2020-04-02 12:15)
DX: I25.110 Atherosclerotic heart disease of native coronary artery with unstable angina pectoris (principal); I10 Essential (primary) hypertension; J44.9 Chronic obstructive pulmonary disease, unspecified; Z82.49 Family history of ischemic heart disease and other diseases of the circulatory system; Z72.0 Tobacco use; Z79.82 Long term (current) use of aspirin; Z79.899 Other long term (current) drug therapy; Z88.0 Allergy status to penicillin; F11.90 Opioid use, unspecified, uncomplicated; F10.10 Alcohol abuse, uncomplicated
CPT/HCPCS: 36415; 71046; 80048; 80061; 80076; 80305; 81001; 83735; 83880; 84436; 84443; 84484; 85014; 85018; 85025; 85610; 85730; 86850; 87581; 87633; 87798; 93005; 93306; 93458; 96365; 96375; 99152; 99285; C1725; C1769; J1644; P9016; Q9967

== ENCOUNTER 2021-09-14 23:59 | Emergency (ER) | payer OTHER, SELFPAY ==
--- NOTE | 2021-09-15 02:04 | PC.NURSE ---
2359: PATIENT ARRIVED PER [facility] EMS IN FULL ARREST. CPR AND ACLS PROTOCOL IN PROGRESS. PATIENT TRANSFERRED OVER TO OUR STRETCHER AND ACLS PROTOCOL CONTINUED PER [facility] STAFF. IO NOTED TO LEFT DISTAL TIBIA - PLACED PER EMS AND I-GEL IN PLACE PER EMS. PUPILS DILATED AND FIXED. 2359: EPINEPHRINE 1MG IVP PER S. IBIS CUMMINGS, WARMED LR INFUSING THRU IO AT WIDE OPEN RATE WITH PRESSURE BAG IN PLACE. 0002: RHYTHM CHECK: ASYTOLE, NO PULSE, CPR RESUMED 0003: EPINEPHRINE 1MG IVP PER S. IBIS CUMMINGS 0004: RHYTHM CHECK: ASYTOLE, NO PULSE, CPR RESUMED 0006: RHYTHM CHECK: ASYTOLE, NO PULSE, CPR RESUMED, EPINEPHRINE 1MG IVP PER Lavelle GODFREY RN 0006: I-GEL REMOVED AND PATIENT INTUBATED PER DR. LANCE WITH A SIZE 8 ETT 120CM AT THE TEETH . COLOR CHANGE NOTED ON CO2 DETECTOR, AND BILATERAL BREATH SOUNDS NOTED. 0008: RECTAL TEMP: 88.7, JAEL HUGGER PLACED ON PATIENT. 16FR F/C PLACED. 0009: RHYTHM CHECK: ASYTOLE, NO PULSE, CPR RESUMED 0010: EPINEPHRINE 1MG IVP PER Lavelle GODFREY RN 0011: RHYTHM CHECK: ASYTOLE, NO PULSE, CPR RESUMED 0012: EPINEPHRINE 1MG IVP PER Gifty STEWART RN 0013: RHYTHM CHECK: ASYTOLE, NO PULSE. DR. LANCE CALLED TIME OF . 0014: DR. LANCE AND MYSELF GATHERED FAMILY IN THE CONSULTATION ROOM TO DELIVER NEWS OF PATIENT EXPIRATION. 0019: VENKATESH ZAPIEN, PET TECHNOLOGIST NOTIFIED OF . VENKATESH STATED HE WOULD BE ON HIS WAY TO [facility]. 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 STATED PATIENT COULD BE RELEASED TO HOME OF CHOICE. 0031: FAMILY AT BEDSIDE. FAMILY REQUEST [facility]. VENKATESH ZAPIEN NOTIFIED HOME OF PATIENT'S FAMILY REQUEST AND INFORMED THEM [facility] WOULD CALL WHEN FAMILY IS READY TO RELEASE THE BODY. 0120: [facility] NOTIFIED OF PATIENT . Gifty STEWART RN SPOKE WITH ALIA OLIVER AT [facility]. [facility] STATED THEY WOULD CALL BACK TO SPEAK WITH FAMILY. 0219: FAMILY STATES THEY WOULD LIKE FOR US TO NOTIFY HOME. 0220: Gifty STEWART, RN SPEAKING TO [facility] TO INFORM THEM THAT FAMILY IS REQUESTING TO SEND PATIENT TO HOME. 0224: [facility] SPEAKING TO JORGE ROJO, PATIENT'S DAUGHTER. 0227: JORGE ALIA, PATIENT'S DAUGHTER STATED SHE SPOKE WITH [facility] AND DECLINED DONATION. 0228: SPEAKING WITH [facility]. CASE #: [id number] 0424: SPOKE WITH LEO AT [facility] TO INFORM HIM THAT FAMILY IS READY TO RELEASE THE BODY. HE STATED HE WOULD BE ON HIS WAY.
[2021-09-15 02:34] VITALS: BMI 34.8
--- NOTE | 2021-09-15 03:01 | [facility].EDCPR ---
ED Disposition Clinical Impression: Cardiopulmonary arrest Disposition: Condition on Discharge: Critical Referrals: Manolo Lance MD [Primary Care Provider] - - Critical Care Critical Care Time: No Attestation: On 09/14/21, the high probability of a clinically significant, sudden or life threatening deterioration of the following system(s) required my full and direct attention, intervention and personal management. The time I documented below is in addition to time spent performing reported procedures but includes the following listed in this critical care notation. [facility] Code Documentation - Arrest Information Outside of Hospital The Code Document Section documentation for [id number] Shay Israel was populated with data that defaulted in from the director systems in the Code Assessment on f_Reg Service Date] to provide within this report, the status and treatment of the patient in the ED during a Code. This documentation will be supplemented with my direct findings within the body of the report. Date Treatment Initiated: 09/15/21 Time Treatment Initiated: 22:51 Treatment Initiated By: Bystander Location of Arrest: [facility] Arrest Witnessed: No - ALS Code Inititation ALS Initiated By: EMS ALS Type: ACLS - Patient Condition At Code Start Condition of Patient at Start of Code: Pulseless, Apneic, Unconscious Monitoring Devices: ECG Monitor - Circulation Initial Cardiac Rhythm: Asystole - Oxygenation Oxygen Breathing Status: Assisted - Code End Time Code Ended: 00:13 Patient Successfully Resuscitated: No Reason Code Ended: - Efforts Terminated Family Members Present During Code: No Names of All Individuals Present at Code: Gifty CUMMINGS RN. Gifty STEWART RN. Lavelle GODFREY RN. DR. LANCE. Lavelle STEIN, EMT. SRNA. Eva BYRD, RT. CANDELARIA, RT - Patient Expiration Date: 09/15/21 Expiration Time: 00:13 Pronounced by: DR. LANCE Time Pronounced: 00:13 Post Mortem Care Provided: Yes Next of Kin Notified: YES Next of Kin Notification Time: 00:14 Bryan Notified: Yes (0120) Name of Bryan Detasseler: ALIA OLIVER Sausage Machine Operator Case: Yes Sausage Machine Operator Notified: Yes Sausage Machine Operator Notification Date: 09/15/21 Sausage Machine Operator Notification Time: 00:19 Body Released To: [facility] Medical Decision Making - Medical Records Medical records reviewed: Yes: I reviewed the patient's medical records. - Herb Inquiry Pt receiving controlled substance: No Vital Signs: 09/15/21 02:41 Oxygen Delivery Method Ambu-Bag Orders (Tests/Meds): ED MEDICATIONS Generic Name Dose Route Start Last Admin Trade Name Freq PRN Reason Stop Dose Admin Lactated Ringer's 1,000 mls @ 999 mls/hr 09/15/21 02:45 09/14/21 23:59 Lactated Ringer's 1000 Ml Bag IV 09/15/21 03:45 999 mls/hr .Q1H1M FELICITA Administration Discontinued Medications Generic Name Dose Route Start Last Admin Trade Name Freq PRN Reason Stop Dose Admin Epinephrine HCl 1 mg 09/15/21 02:36 09/15/21 00:12 Epinephrine 0.1 Mg/Ml 10ml Syringe (Crash Cart) IV 1 mg NEEDED PRN Administration Code Blue Med Administration Medical Decision Narrative: code blue with no resp to acls and pt pronounced at 0013 CPR HPI - General Stated Complaint: code 500 Time Seen by Provider: 09/14/21 23:59 Mode of Arrival: EMS Source of Information: Medical Record Limitations: Physical Limitations - History of Present Illness MD complaint: found unresponsive Associated injuries: No - Related Data Home Medications Medication Instructions Recorded Confirmed bisoproloL fumarate [Bisoprolol 10 mg PO DAILY 04/01/20 04/02/20 10mg Tablet] ferrous sulfate 325 mg (65 mg 325 mg PO BID 04/01/20 04/01/20 iron) tablet,delayed release Aspirin [Aspirin 81mg EC Tab] 81 mg PO DAILY 04/02/20 04/02/20 hydroCHLOROthiazide 12.5 mg PO DAILY 04/02/20 04/02/20 [Hydrochlorothiazide] Previous Rx's
[2021-09-15 04:39] VITALS: BP 0/0; PULSE 0; RESP 0; TEMP -17.7; TEMP 0
== END 2021-09-15 04:40 | disposition expired ==
PROVIDERS: Emergency Provider Emergency Medicine; PCP Emergency Medicine
DX: I46.9 Cardiac arrest, cause unspecified (principal)
CPT/HCPCS: 31500; 92950; 96365; 96375; 96376; 99283